=== PATIENT | female | born 1960 | race Caucasian/White ===

== ENCOUNTER 2018-09-20 13:19 | Emergency (ER) | payer MEDICAID ==
[~2018-09-20] VITALS: Ht 165.1 cm; Wt 116.0 kg
[2018-09-20 13:38] VITALS: BP 147/101
[2018-09-20] MEDS ORDERED: ipratropium/albuterol 3ml nebule NEB ONE (14:10)
[2018-09-20] MEDS ORDERED: METH4TAB81 PO (14:14)
[2018-09-20] MEDS ORDERED: AZIT250T83 PO (14:14)
[2018-09-20] MEDS ORDERED: ALBU8.5H8 IH (14:14)
[2018-09-20] MEDS ORDERED: GUAI473S11 PO (14:14)
== END 2018-09-20 14:31 | disposition home or self-care (01) ==
LOC: ER 13:19
DX: J44.1 Chronic obstructive pulmonary disease with (acute) exacerbation (principal)
CPT/HCPCS: 71045; 94640; 94760; 99283

== ENCOUNTER 2019-09-06 21:34 | Emergency (ER) | payer MEDICAID ==
[~2019-09-06] VITALS: Ht 165.1 cm; Wt 118.8 kg
[~2019-09-06 21:34] MED LIST: ALBU8.5H8 IH; METH4TAB81 PO
[2019-09-06 22:25] LABS: BASOPHILS # (AUTO) 0.1 X10'3 (0-0.2); BASOPHILS % (AUTO) 0.5 % (0-1); EOSINOPHILS # (AUTO) 0.1 X10'3 (0-0.9); EOSINOPHILS % (AUTO) 0.6 % (0-6); HEMATOCRIT 40.9 % (35.0-45.0); HEMOGLOBIN 13.5 g/dl (12.0-16.0); LYMPHOCYTES # (AUTO) 1.7 X10'3 (1.1-4.8); LYMPHOCYTES % (AUTO) 10.9 % (21-51); MEAN CORPUSCULAR HEMOGLOBIN 27.7 PG (27.0-31.0); MEAN CORPUSCULAR HGB CONC 33.1 g/dL (33.0-36.5); MEAN CORPUSCULAR VOLUME 83.5 FL (78-98); MEAN PLATELET VOLUME 8.1 FL (7.4-10.4); MONOCYTES # (AUTO) 0.8 X10'3 (0-0.9); MONOCYTES % (AUTO) 4.8 % (2-12); NEUTROPHILS # (AUTO) 13.3 X10'3 (1.8-7.7); NEUTROPHILS % (AUTO) 83.2 % (42-75); PLATELET COUNT 237 X10'3 (140-440); RED BLOOD COUNT 4.89 X10'6 (4.20-5.60); RED CELL DISTRIBUTION WIDTH 14.1 % (11.5-14.5)
[2019-09-06] MEDS ORDERED: normal saline 1000ml 1,000 ML IV ONE (22:30)
[2019-09-06] MEDS ORDERED: ipratropium/albuterol 3ml nebule NEB ONE (22:30)
[2019-09-06 22:40] LABS: ALANINE AMINOTRANSFERASE 34 U/L (12-78); ALBUMIN 3.1 G/DL (3.4-5.0); ALBUMIN/GLOBULIN RATIO 0.7 (1.1-1.5); ALKALINE PHOSPHATASE 130 IU/L (46-116); ANION GAP 8 (8-16); ASPARTATE AMINO TRANSFERASE 23 U/L (10-37); BILIRUBIN,TOTAL 0.3 MG/DL (0.1-1.0); BLOOD UREA NITROGEN 13 MG/DL (7-18); BUN/CREATININE RATIO 14.1 (6.6-38.0); CALCIUM 8.5 MG/DL (8.5-10.1); CHLORIDE 100 MMOL/L (99-107); CREATININE 0.92 MG/DL (0.40-0.90); GLUCOSE 182 MG/DL (70-104); SODIUM 138 MMOL/L (135-145); TOTAL CARBON DIOXIDE 29.9 MMOL/L (24-32); TOTAL PROTEIN 7.5 G/DL (6.4-8.2); eGFR 62 ML/MIN
[2019-09-06] MEDS ORDERED: CIPR10DR RIGHT EAR (23:14)
[2019-09-06] MEDS ORDERED: CIPR-230 PO (23:14)
[2019-09-06] MEDS ORDERED: AZIT250T83 PO (23:14)
[2019-09-06 23:32] LABS: CLARITY,URINE CLEAR (Clear); COLOR,URINE YELLOW (Yellow); GLUCOSE, URINE NEGATIVE (Neg); KETONES,URINE NEGATIVE (Neg); LEUKOCYTE ESTERASE ,URINE NEGATIVE (Neg); NITRITES, URINE NEGATIVE (Neg); OCCULT BLOOD,URINE TRACE-INTACT (Neg); PROTEIN,URINE NEGATIVE (Neg); UROBILINOGEN,URINE 0.2 E.U/dL (0.2-1.0)
[2019-09-06 23:34] LABS: UA COLLECTION TYPE CLN CATCH MIDSTREAM
[2019-09-06 23:48] LABS: BACTERIA,URINE FEW /HPF (Neg); RBC,URINE NONE SEEN /HPF (0-2); SQUAMOUS EPITHELIAL CELL,UR FEW /LPF (FEW); WBC,URINE 0-4 /HPF (0-4)
[2019-09-07 00:05] VITALS: BP 168/84
[2019-09-07] MEDS ORDERED: CODE120S2 PO (00:06)
[2019-09-07] MEDS ORDERED: IBUP-1984 PO (00:18)
== END 2019-09-07 00:21 | disposition home or self-care (01) ==
LOC: ER 21:34
DX: J18.1 Lobar pneumonia, unspecified organism (principal); H60.91 Unspecified otitis externa, right ear; F12.90 Cannabis use, unspecified, uncomplicated; Z79.899 Other long term (current) drug therapy
CPT/HCPCS: 36415; 71046; 80053; 81001; 83605; 84145; 85025; 87040; 93005; 94640; 99284; J7030

== ENCOUNTER 2019-12-04 07:56 | Emergency (ER) | payer MEDICAID ==
[~2019-12-04] VITALS: Ht 165.1 cm; Wt 114.4 kg
[~2019-12-04 07:56] MED LIST changes: +CODE120S2 PO
[2019-12-04] MEDS ORDERED: ipratropium/albuterol 3ml nebule NEB ONE (08:30)
[2019-12-04] MEDS ORDERED: METH4TAB81 PO (09:11)
[2019-12-04] MEDS ORDERED: AMOX-422 PO (09:11)
[2019-12-04] MEDS ORDERED: ALBU8.5H8 IH (09:11)
[2019-12-04] MEDS ORDERED: AZIT250T29 PO (09:11)
[2019-12-04 09:22] VITALS: BP 169/80
== END 2019-12-04 09:24 | disposition home or self-care (01) ==
LOC: ER 07:56
DX: J44.1 Chronic obstructive pulmonary disease with (acute) exacerbation (principal); I10 Essential (primary) hypertension; F17.200 Nicotine dependence, unspecified, uncomplicated; F12.90 Cannabis use, unspecified, uncomplicated; Z79.899 Other long term (current) drug therapy
CPT/HCPCS: 71046; 93005; 94640; 94760; 99283

== ENCOUNTER 2022-03-03 18:01 | Emergency (ER) | payer MEDICAID ==
[~2022-03-03] VITALS: Ht 165.1 cm; Wt 100.0 kg
[~2022-03-03 18:01] MED LIST changes: +ALBU8.5H17 IH; -ALBU8.5H8 IH; -CODE120S2 PO; -METH4TAB81 PO
[2022-03-03 19:11] VITALS: BP 172/90
[2022-03-03] MEDS ORDERED: CEPH-585 PO (21:23)
[2022-03-03] MEDS ORDERED: cephalexin 250mg capsule PO ONE (21:25)
== END 2022-03-03 21:40 | disposition left against medical advice (07) ==
LOC: ER 18:01
DX: L03.116 Cellulitis of left lower limb (principal); M25.562 Pain in left knee; M25.552 Pain in left hip; J44.9 Chronic obstructive pulmonary disease, unspecified; F12.90 Cannabis use, unspecified, uncomplicated; Z79.2 Long term (current) use of antibiotics
CPT/HCPCS: 99283

== ENCOUNTER 2025-06-26 15:29 | Emergency (ER) | payer BC, MEDICAID ==
[~2025-06-26] VITALS: Ht 167.6 cm; Wt 95.5 kg
[2025-06-26 15:42] VITALS: BP 149/75; PULSE 89; RESP 18; TEMP 97.8; O2SAT 89
--- NOTE | 2025-06-26 15:44 | Physician Documentation ---
History of Present Illness ~ Chief Complaint: Back Pain Stated Complaint: FALL-STAIRS Time Seen by MD: 15:58 Primary Medical Doctor: none HPI 65-year-old female presents to the ED with a complaint of a fall down three concrete steps this morning. States she injured her left knee and reports that she primarily struck her lumbosacral region in his now experiencing sharp pain in the lumbar region Denies any numbness or tingling fevers or incontinence at this time. was ambulate with the assistance of her walker Day of Onset: Jun 26, 2025 Medication Reconciliation Allergies: Coded Allergies: No Known Allergies (Unverified , 09/06/19) Scheduled PRN Albuterol Sulfate (Proair Hfa), 2 PUFFS IH Q6H PRN for SOB or wheezing Past Medical History Past Medical History: COPD Past Surgical History: no surgical history Alcohol Use: None Drug Use: marijuana Lives In: Home Physical Exam Physical Exam Physical Exam General: Alert, no apparent distress. HEENT: PERRL, EOMI, no injection, moist mucous membranes. Neck: Full range of motion. Respiratory: Lungs clear, no respiratory distress. Extremities: Normal range of motion, no deformity. Neurologic: Oriented x4. Reflexes are intact Psychiatric: Normal mood and affect. Skin: Normal color, warm and dry. No edema, no ecchymosis. Progress Results/Orders Results/Orders Orders - JOHN HUBBARD CARD STRIPPER Sacrum & Coccyx (06/26/25 15:45) Lumbar Spine Limited (06/26/25 ) Ct Lumbar Spine (06/26/25 16:49) Completed Orders - JOHN HUBBARD CARD STRIPPER Sacrum & Coccyx (06/26/25 15:45) Lumbar Spine Limited (06/26/25 ) Hydrocodone/Apap 10/325 ([place] 10/325mg (06/26/25 16:15) Ibuprofen Tablet (Motrin Tablet) (06/26/25 16:20) Ct Lumbar Spine (06/26/25 16:49) Medications Received in ER Medications (Trade) Dose Ordered Sig/[place] Route PRN Reason Start Time Stop Time Status Last Admin Dose Admin (Motrin tablet) 600 mg ONCE ONCE PO 06/26/25 16:20 06/26/25 16:21 DC 06/26/25 16:18 600 MG Vital Signs 06/26/25 15:42 Temp 97.8 Pulse 89 Resp 18 B/P (MAP) 149/75 Pulse Ox 89 Medical Decision Making Findings I was initially concerned of lumbar sacral fractures upon patient's presentation x-ray indicated that there was a possible L1 fracture. Gave her ibuprofen which she requested. The CT findings showed no evidence of an L1 compression fracture therefore at this time he presents as a safe discharge for tell her to return to the ED if she has any worsening symptoms Differential Dx:Considerations: Include: AAA, Aortic dissection, , Appendicitis, Bowel obstruction, Cholelithiasis, Cholangitis, DJD, Ectopic , Fracture, Hepatitis, HNP, Musculoskeletal pain, Pancreatitis, Pyelonephritis, Strain, Urinary obstruction, Urolithiasis, Ovarian torsion, Other Departure Disposition: HOME / SELF CARE / HOMELESS Impression: Primary Impression: Lumbosacral strain Additional Impressions: Low back pain Fall Condition: Stable Discharge Instructions: Fall Prevention in the Home, Adult, [id number] Additional Instructions: The CT scan did not indicate that you have a fracture. Time we can treat your fall as essentially a deep bruise or sprain. take ibuprofen or Tylenol as directed Referrals: NO PRIMARY CARE PROVIDER (PCP) Signature Scribe Signature: d Attestation: Scribed for John Hubbard Np by John Martinez NP . 06/26/25 16:59 JOHN HUBBARD NP Jun 26, 2025 15:44
[2025-06-26] MEDS: ibuprofen tablet 400 MG TABLET PO ONE (16:18)
[2025-06-26] MEDS: HYDROcodone/acetaminophen 10/325mg tab PO ONE (16:18)
--- NOTE | 2025-06-26 16:24 | RADIOLOGY REPORT ---
EXAM: DI LUMBAR SPINE LIMITED HISTORY: fall 65-year-old female with low back pain after fall. COMPARISON: None TECHNIQUE: AP and lateral views of the lumbar spine and spot lateral of the lumbosacral junction were performed. FINDINGS: There is a mild superior endplate compression fracture of L1. No other fractures are identified abou t the lumbar spine. There is moderate degenerative disc disease and facet arthropathy. IMPRESSION: 1. Mild superior endplate compression fracture of L1, timing unknown. Consider follow-up noncontrast CT or MR imaging for better characterization. 2. Moderate lumbar degenerative disc disease and facet arthropathy.
--- NOTE | 2025-06-26 16:26 | RADIOLOGY REPORT ---
CLINICAL INDICATION: fall TECHNIQUE: 4 views of the sacrum and coccyx were performed. DI SACRUM COCCYX Comparison: None FINDINGS/IMPRESSION: 1. No acute displaced fractures are identified about the sacrum or coccyx. 2. Lower lumbar degenerative disc disease and facet arthropathy.
--- NOTE | 2025-06-26 17:13 | RADIOLOGY REPORT ---
EXAM: CT CT LUMBAR SPINE INDICATION: L1 compression FX TECHNIQUE: Axial images of the lumbar spine have been obtained along with coronal and sagittal reform atted images. CT scans at this facility use dose modulation, iterative reconstruction, and/or weight based dosing when appropriate to reduce radiation dose to as low as reasonably achievable. COMPARISON: DI LUMBAR SPINE LIMITED on DOS: 06/26/25 FINDINGS: ANATOMY: Five lumbar-type vertebral bodies are present. The most inferior well-formed disc space will be referred to as L5-S1 for purposes of numbering in this report. VERTEBRAL BODIES: Anterior superior endplate height loss measuring up to 20 percent with the associat ed Schmorl's node of the L1. No evidence of retropulsion. SPINAL CANAL: Congenitally short pedicles with at least moderate anterior to posterior spinal canal n arrowing throughout the majority of the lumbar spine from L2- S1 vertebral bodies. INTERVERTEBRAL DISCS: Inconspicuous slight disc protrusions at L2-3, L3-4, L4-5 with inferior foramin al extension likely contributing to at least mild bilateral foraminal narrowing. FACETS: Multilevel mild to moderate facet arthropathy. OTHER: None. IMPRESSION: 1. Anterior superior endplate height loss measuring up to 20 percent with the associated Schmorl node of the L 2. No evidence of retropulsion. No discrete acute fracture plane. Consider further evaluation with M RI to assess for bone marrow edema. 3. Congenitally short pedicles with at least moderate anterior to posterior spinal canal narrowing th roughout the majority of the lumbar spine from L2-L3 and L5-S1.
== END 2025-06-26 17:24 | disposition home or self-care (01) ==
LOC: ER 15:30
DX: S39.012A Strain of muscle, fascia and tendon of lower back, initial encounter (principal); J44.9 Chronic obstructive pulmonary disease, unspecified; F12.90 Cannabis use, unspecified, uncomplicated; W10.9XXA Fall (on) (from) unspecified stairs and steps, initial encounter; Y93.89 Activity, other specified; Y92.89 Other specified places as the place of occurrence of the external cause; Y99.8 Other external cause status
CPT/HCPCS: 72100; 72131; 72220; 99284

== ENCOUNTER 2025-07-25 12:45 | Emergency (ER) | payer BC, MEDICAID ==
[~2025-07-25] VITALS: Ht 165.1 cm; Wt 91.5 kg
[2025-07-25 12:48] VITALS: BP 156/85; PULSE 100; RESP 16; TEMP 98.5; O2SAT 99
[2025-07-25] MEDS ORDERED: IBUP600T52 PO (15:22)
--- NOTE | 2025-07-25 15:22 | Physician Documentation ---
History of Present Illness ~ Chief Complaint: Mechanical Fall Stated Complaint: FALL Time Seen by MD: 12:54 OK to notify your PCP?: Yes Primary Medical Doctor: none Source: patient, RN/ HPI Patient is seen today with complaints of having tripped and fell last night and fell onto her face. Patient states she tripped over a bag of clothes and was holding some things in her hands and fell almost directly onto her face. Patient has no other concern or complaint at this time. Denies any blood thinner use and denies any loss of consciousness and states her face is little swollen but states it is not actually that painful. She states she is in a program and she would not have come to the ER accept the program kind of made her come here. Tetanus within 5 Years?: No Medication Reconciliation Allergies: Coded Allergies: No Known Allergies (Unverified , 07/25/25) Scheduled PRN Albuterol Sulfate (Proair Hfa), 2 PUFFS IH Q6H PRN for SOB or wheezing Past Medical History Past Medical History: COPD Past Surgical History: no surgical history Alcohol Use: None Drug Use: marijuana Lives In: Home Review of Systems Constitutional: Denies: chills, fever, weakness Eyes: Denies: pain, blurred vision ENT: Denies: ear pain, nose pain, throat pain, mouth pain Respiratory: Denies: cough, shortness of breath Cardiovascular: Denies: chest pain, palpitations Gastrointestinal: Denies: abdominal pain, nausea, vomiting Genitourinary: Denies: burning, dysuria Female Genitalia: Denies: vaginal discharge, pelvic pain Neurological: Denies: headache, dizziness Musculoskeletal: Denies: pain, swelling Integumentary: Denies: rash, lesions Allergic/Immunologic: Denies: hives, itching Hematologic/Lymphatic: Denies: no symptoms reported Psychiatric: Denies: depression, anxiety Physical Exam Vital Signs: Temperature: 98.5, Source: Temporal, Heart Rate: 100, Respiratory Rate: 16, BP: 156/85, Pulse Oximetry: 99, Weight: 91.500 Oxygen Flow Rate: 0 Physical Exam General: Awake and Alert, no acute distress. HEENT: Patient on exam has PERRLA, EOM intact bilaterally, sclera clear, patient does have some swelling of her upper lip on the right side with a small laceration of her inner lip. Patient has small amount of swelling with minimal tenderness to palpation of the right cheek and right cheekbone. Facial muscles intact. Neck: Supple without masses and tenderness. Resp: Unlabored. Lungs clear to auscultation bilaterally. Heart: Regular Rate and rhythm, normal S1 and S2 without murmur, rub or gallop. Abdomen: Soft and non tender no organomegaly Extremities: No cyanosis,clubbing or edema. Skin: Warm and Dry. Progress Results/Orders Results/Orders Completed Orders - ADAN MARINA PAC Ibuprofen Tablet (Motrin Tablet) (07/25/25 14:56) Vital Signs 07/25/25 12:48 Temp 98.5 Pulse 100 Resp 16 B/P (MAP) 156/85 Pulse Ox 99 O2 Flow Rate 0 Medical Decision Making Findings Patient is seen today with complaints of having tripped and fell last night and fell onto her face. Patient states she tripped over a bag of clothes and was holding some things in her hands and fell almost directly onto her face. Patient has no other concern or complaint at this time. Denies any blood thinner use and denies any loss of consciousness and states her face is little swollen but states it is not actually that painful. She states she is in a program and she would not have come to the ER accept the program kind of made her come here. Patient declined/refused CT scan of facial bones and head to rule out facial fracture or brain bleed. Patient was given dose of ibuprofen 800 mg one tab by mouth in the ED today. Prescription of ibuprofen sent to patient's pharmacy. Patient will return to ED with any worsening, concerning or changing symptoms. Departure Disposition: 01 HOME / SELF CARE / HOMELESS Impression: Primary Impression: Contusion of face Qualified Codes: S00.83XA - Contusion of other part of head, initial encounter Condition: Stable Discharge Instructions: Fall Prevention in the Home, Adult, [id number] Additional Instructions: Patient declined/refused CT scan of facial bones and head to rule out facial f racture or brain bleed. Patient was given dose of ibuprofen 800 mg one tab by mouth in the ED today. Prescription of ibuprofen sent to patient's pharmacy. Patient will return to ED with any worsening, concerning or changing symptoms. Referrals: NO PRIMARY CARE PROVIDER (PCP) Prescriptions Ibuprofen (Ibuprofen) 600 Mg Tablet 1 TAB PO Q8H for pain for 10 Days, #30 TAB 0 Refills with food Prov: ADAN MARINA 07/25/25 Signature Scribe Signature: No scribe Attestation: No scribe ADAN MARINA PAC Jul 25, 2025 15:22
[2025-07-25] MEDS: ibuprofen tablet 400 MG TABLET PO STA (15:44)
== END 2025-07-25 15:44 | disposition home or self-care (01) ==
LOC: ER 12:46
DX: S00.83XA Contusion of other part of head, initial encounter (principal); J44.9 Chronic obstructive pulmonary disease, unspecified; F12.90 Cannabis use, unspecified, uncomplicated; W01.0XXA Fall on same level from slipping, tripping and stumbling without subsequent striking against object, initial encounter; Y93.89 Activity, other specified; Y92.89 Other specified places as the place of occurrence of the external cause; Y99.8 Other external cause status
CPT/HCPCS: 99283